=== PATIENT | female | born 1945 | race Caucasian/White ===

== ENCOUNTER → 2019-08-15 14:16 | Outpatient (CLI) | payer MEDICARE, SELFPAY ==
--- NOTE | ~2019-08-15 | DEXA_ITS ---
Bone Density Report Name: Daya Szymanski Age: 73 Sex: Female Ethnicity: White Date of : 1945 Indication: osteopenia; prior fracture; postmenopausal Referring Provider: Hilary Yap Study: Bone densitometry was performed. Exam Date: August 15, 2019 Accession number: [id number] Bone Density: Region BMD T-score Z-score Classification AP Spine (L1-L4) 0.993 -0.5 1.9 Normal Femoral Neck (Left) 0.704 -1.3 0.7 Osteopenia Total Hip (Left) 0.874 -0.6 1.2 Normal Femoral Neck (Right) 0.659 -1.7 0.4 Osteopenia Total Hip (Right) 0.750 -1.6 0.2 Osteopenia Total Hip Mean 0.812 -1.1 0.7 Osteopenia World Health Organization criteria for BMD impression classify patients as: Normal (T-score at or above -1.0), Osteopenia (T-score between -1.0 and -2.5), or Osteoporosis (T-score at or below -2.5). 10-year Fracture Risk(1): Major Osteoporotic Fracture 18% Hip Fracture 3.6% Reported Risk Factors: [place] (), Neck BMD=0.659, BMI=28.4, previous fracture (1) FRAX(R) Version 3.08. Fracture probability calculated for an untreated patient. Fracture probability may be lower if the patient has received treatment. Previous Exams: Region Exam Age BMD T-score BMD Change BMD Change Date g/cm2 vs Baseline vs Previous AP Spine(L1-L4) 08/15/2019 73 0.993 -0.5 -0.017 -0.042* 01/14/2017 71 1.035 -0.1 0.025* 0.046* 02/06/2014 68 0.988 -0.5 -0.021 -0.021 09/04/2011 65 1.009 -0.3 Total Hip(Left) 08/15/2019 73 0.874 -0.6 -0.093* 0.000 01/14/2017 71 0.874 -0.6 -0.093* -0.030* 02/06/2014 68 0.904 -0.3 -0.063* -0.063* 09/04/2011 65 0.967 0.2 Total Hip(Right) 08/15/2019 73 0.750 -1.6 -0.147* -0.046* 01/14/2017 71 0.796 -1.2 -0.100* -0.035* 02/06/2014 68 0.831 -0.9 -0.065* -0.065* 09/04/2011 65 0.896 -0.4 *Denotes significance at 95% confidence level, LSC for AP Spine = 0.022 g/cm2, LSC for Total Hip = 0.027 g/cm2 Clinical Information Provided by Patient: Has had a low trauma fracture Has used the following medications: Vitamin D Patient maximum height was 64.5 Menopause Age: 38 No regular weight bearing exercise Does not regularly consume dairy products Drinks caffeinated beverages Onset of menses at age 14 Number of children 0 Impression:
== END ==
PROVIDERS: Visit Provider Nurse Practitioner
DX: Z78.0 Asymptomatic menopausal state (principal); M85.852 Other specified disorders of bone density and structure, left thigh; M85.851 Other specified disorders of bone density and structure, right thigh
CPT/HCPCS: 77080

== ENCOUNTER 2019-08-24 01:32 | Day surgery (SDC) | payer MEDICARE, SELFPAY ==
[2019-08-23 14:41] VITALS: BMI 28.8
[2019-08-24 07:51] VITALS: BP 129/76; PULSE 95; RESP 18; TEMP 36.3; O2SAT 98
[2019-08-24] MEDS: LACTATED RINGERS 1,000 ML 150 ML IV CONT (08:04)
--- NOTE | 2019-08-24 08:12 | WPDANESEPPF ---
Anes - Initial Pre Proc Eval Procedure: Operation Date: 08/24/19 08:45 Proposed Procedures p Screening Colonoscopy - Jose Loera MD Date/Time: 08/24/19 08:12 Surgeon: Jose Loera MD Pre Op Diagnosis: Neoplasm Screening Patient Data Age: 73 Gender: F Height: 1.63 m Weight: 0 g Last Vital Signs Temp 36.3 C L 08/24/19 07:51 Pulse 95 08/24/19 07:51 Resp 18 08/24/19 07:51 BP 129/76 08/24/19 07:51 Pulse Ox 98 08/24/19 07:51 Allergies Allergy/AdvReac Type Severity Reaction Status Date / Time celecoxib Allergy Unknown Unknown Verified 08/24/19 07:48 doxycycline Allergy Unknown Unknown Verified 08/24/19 07:48 ioversol Allergy Unknown Unknown Verified 08/24/19 07:48 Penicillins Allergy Unknown Unknown Verified 08/24/19 07:48 Sulfa (Sulfonamide Allergy Unknown Unknown Verified 08/24/19 07:48 Antibiotics) sulfanilamide Allergy Unknown Unknown Verified 08/24/19 07:48 Iodinated Contrast Media Allergy Itching Verified 08/24/19 07:48 Home Medications Medication Instructions Recorded Confirmed Type fluoxetine 40 mg capsule 40 mg PO DAILY #90 cap 06/20/19 08/23/19 Rx lisinopril 20 mg tablet 20 mg PO DAILY #90 tablet 06/20/19 08/23/19 Rx aspirin 81 mg tablet,delayed 81 mg PO DAILY 06/21/19 08/23/19 History release cholecalciferol (vitamin D3) 50 2,000 unit PO DAILY 06/21/19 08/23/19 History mcg (2,000 unit) tablet fluticasone propionate 50 1 spray NASAL BID 06/21/19 08/23/19 History mcg/actuation nasal spray,suspension folic acid 1 mg tablet 1 mg PO DAILY 06/21/19 08/23/19 History omeprazole 40 mg capsule,delayed 40 mg PO DAILY 06/21/19 08/23/19 History release ranitidine HCl 75 mg tablet 75 mg PO DAILY 06/21/19 08/23/19 History amlodipine 10 mg tablet 10 mg PO DAILY #90 tablet 07/20/19 08/23/19 Rx metoprolol tartrate 50 mg tablet 50 mg PO DAILY #90 tablet 07/24/19 08/23/19 Rx peg 3350-electrolytes 236 240 ml PO Q10M #4000 ml 08/16/19 Rx gram-22.74 gram-6.74 gram-5.86 gram solution Patient hx anesthesia problems: none Family hx anesthesia problems: none PMFSH Past Medical History Medical History (Updated 07/24/19 @ 09:32 by Hilary Yap NP) Broken ankle left Disc herniation HTN (hypertension) Hyperlipidemia due to dietary fat intake Lactose intolerance Osteoporosis Surgical History Surgical History (Updated 06/21/19 @ 07:25 by Radha Bradford [facility]) H/O oophorectomy H/O rotator cuff surgery Family History Family History (Updated 12/23/17 @ 10:22 by DOCTOR UNKNOWN) Father Family history of heart disease in male family member before age 55 Family history of premature coronary heart disease Mother Family history of heart disease in male family member before age 55 Diabetes mellitus Sibling Family history of coronary artery disease Family history of pancreatic disease Other Family history of allergic disorder Family history of cardiovascular disease Family history of mental disorder Social History Social History (Updated 06/21/19 @ 08:16 by Lynn Crawford [facility]) Smoking status: Former smoker Smoking end date: 06/14/83 Alcohol intake: current Gender identity (if verbalized by the patient): Female Anes - Eval Final PreProcedure Day of Procedure 08/24/19 08:12 Patient weight: normal Heart: regular rate and rhythm Lungs: clear to auscultation and normal air movement Airway: Mallampati scale class II Neurological: alert and oriented Last oral intake: >/= 8 hours ASA classification: II Emergent: no Anesthetic plan: proceed Anesthesia type and monitoring: general GIVS and standard monitoring Informed Consent: The patient's anesthetic plan and its attendant risks and benefits were discussed with the patient/family/POA. Questions were solicited and answers provided to the satisfaction of the patient/family/POA.
--- NOTE | 2019-08-24 08:44 | PM.HPGS ---
History of Present Illness History of Present Illness Consent: Risks, benefits, and alternatives have been discussed and questions answered. Patient agrees to proceed with procedure. Chief complaint: Neoplasm Screening Narrative: Daya Szymanski is a 73 year old female here for abnormal cologuard, she had a colonoscopy but years ago. Review of Systems Constitutional: Constitutional: Denies headache(s) and Denies weakness Eyes: Eyes: Denies blurry vision ENT: Reports Normal hearing present, Denies headache(s) and Denies neck pain Cardiovascular: Cardiovascular: Denies chest pain and Denies dyspnea Respiratory: Respiratory: Denies dyspnea Gastrointestinal: Gastrointestinal: Reports no additional gastrointestinal complaints Genitourinary: Genitourinary: Denies dysuria Musculoskeletal: Musculoskeletal: Denies neck pain Integumentary/Breasts: Skin/Breast: Denies dry skin Neurologic: Reports Normal hearing present, Denies headache(s) and Denies weakness Psychiatric: Psychiatric: Denies anxiety Endocrine: Endocrine: Denies change in body appearance Hematologic/Lymphatic: Hematologic/Lymphatic: Denies easy bleeding Allergic/Immunologic: Allergic/Immunologic: Denies urticaria PMFSH Past Medical History Medical History (Updated 08/24/19 @ 08:44 by Jose Loera MD) Broken ankle left Disc herniation HTN (hypertension) Hyperlipidemia due to dietary fat intake Lactose intolerance Osteoporosis Positive colorectal cancer screening using Cologuard test Surgical History Surgical History (Updated 06/21/19 @ 07:25 by Radha Bradford [facility]) H/O oophorectomy H/O rotator cuff surgery Family History Family History (Updated 12/23/17 @ 10:22 by DOCTOR UNKNOWN) Father Family history of heart disease in male family member before age 55 Family history of premature coronary heart disease Mother Family history of heart disease in male family member before age 55 Diabetes mellitus Sibling Family history of coronary artery disease Family history of pancreatic disease Other Family history of allergic disorder Family history of cardiovascular disease Family history of mental disorder Social History Social History (Updated 06/21/19 @ 08:16 by Lynn Crawford [facility]) Smoking status: Former smoker Smoking end date: 06/14/83 Alcohol intake: current Gender identity (if verbalized by the patient): Female Meds Home Medications and Allergies Home Medications Medication Instructions Recorded Confirmed Type fluoxetine 40 mg capsule 40 mg PO DAILY #90 cap 06/20/19 08/23/19 Rx lisinopril 20 mg tablet 20 mg PO DAILY #90 tablet 06/20/19 08/23/19 Rx aspirin 81 mg tablet,delayed 81 mg PO DAILY 06/21/19 08/23/19 History release cholecalciferol (vitamin D3) 50 2,000 unit PO DAILY 06/21/19 08/23/19 History mcg (2,000 unit) tablet fluticasone propionate 50 1 spray NASAL BID 06/21/19 08/23/19 History mcg/actuation nasal spray,suspension folic acid 1 mg tablet 1 mg PO DAILY 06/21/19 08/23/19 History omeprazole 40 mg capsule,delayed 40 mg PO DAILY 06/21/19 08/23/19 History release ranitidine HCl 75 mg tablet 75 mg PO DAILY 06/21/19 08/23/19 History amlodipine 10 mg tablet 10 mg PO DAILY #90 tablet 07/20/19 08/23/19 Rx metoprolol tartrate 50 mg tablet 50 mg PO DAILY #90 tablet 07/24/19 08/23/19 Rx peg 3350-electrolytes 236 240 ml PO Q10M #4000 ml 08/16/19 Rx gram-22.74 gram-6.74 gram-5.86 gram solution Allergies Allergy/AdvReac Type Severity Reaction Status Date / Time celecoxib Allergy Unknown Unknown Verified 08/24/19 07:48 doxycycline Allergy Unknown Unknown Verified 08/24/19 07:48 ioversol Allergy Unknown Unknown Verified 08/24/19 07:48 Penicillins Allergy Unknown Unknown Verified 08/24/19 07:48 Sulfa (Sulfonamide Allergy Unknown Unknown Verified 08/24/19 07:48 Antibiotics) sulfanilamide Allergy Unknown Unknown Verified 08/24/19 07:48 Iodinated Co
[2019-08-24 09:05] VITALS: BP 103/57; PULSE 64; RESP 16; O2SAT 98
[2019-08-24 09:15] VITALS: BP 118/80; PULSE 65; RESP 16; O2SAT 97
== END 2019-08-24 09:25 | disposition home or self-care (01) ==
PROVIDERS: PCP Internal Medicine; Visit Provider Internal Medicine Gastroenterology
PROC: 0DJD8ZZ Inspection of Lower Intestinal Tract, Via Natural or Artificial Opening Endoscopic (ICD-10-PCS; CPT 45378; principal; 2019-08-24 08:45)
DX: R19.5 Other fecal abnormalities (principal); D12.3 Benign neoplasm of transverse colon; K57.30 Diverticulosis of large intestine without perforation or abscess without bleeding; K64.8 Other hemorrhoids; I10 Essential (primary) hypertension; E78.5 Hyperlipidemia, unspecified; M81.0 Age-related osteoporosis without current pathological fracture; Z79.82 Long term (current) use of aspirin; Z87.891 Personal history of nicotine dependence
CPT/HCPCS: 45385; 88305; J2704; J7120

== ENCOUNTER → 2020-10-10 09:36 | Outpatient (CLI) | payer MEDICARE, SELFPAY ==
[2020-10-10 12:17] LABS: Influenza Control Positive
[2020-10-11 14:59] LABS: SARS-CoV-2 RNA PCR Negative
== END ==
PROVIDERS: PCP Internal Medicine; Visit Provider Nurse Practitioner
DX: R50.9 Fever, unspecified (principal); Z20.822 Contact with and (suspected) exposure to COVID-19
CPT/HCPCS: 87804; C9803; U0003; U0005

== ENCOUNTER → 2022-04-09 14:51 | Outpatient (CLI) | payer MEDICARE, SELFPAY ==
--- NOTE | ~2022-04-09 | DEXA_ITS ---
Bone Density Report Name: KRYSTIN FRANCIS Age: 76 Sex: Female Ethnicity: White Date of : 1945 Indication: osteopenia; prior fracture; postmenopausal Referring Provider: Hilary Yap Study: Bone densitometry was performed. Exam Date: April 09, 2022 Accession number: [id number] Bone Density: Region BMD T-score Z-score Classification AP Spine (L1-L4) 0.987 -0.5 2.0 Normal Femoral Neck (Left) 0.662 -1.7 0.5 Osteopenia Total Hip (Left) 0.839 -0.8 1.1 Normal Femoral Neck (Right) 0.651 -1.8 0.4 Osteopenia Total Hip (Right) 0.721 -1.8 0.1 Osteopenia Total Hip Mean 0.780 -1.3 0.6 Osteopenia World Health Organization criteria for BMD impression classify patients as: Normal (T-score at or above -1.0), Osteopenia (T-score between -1.0 and -2.5), or Osteoporosis (T-score at or below -2.5). 10-year Fracture Risk(1): Major Osteoporotic Fracture 19% Hip Fracture 4.2% Reported Risk Factors: [place] (), Neck BMD=0.651, BMI=28.9, previous fracture (1) FRAX(R) Version 3.08. Fracture probability calculated for an untreated patient. Fracture probability may be lower if the patient has received treatment. Previous Exams: Region Exam Age BMD T-score BMD Change BMD Change Date g/cm2 vs Baseline vs Previous AP Spine(L1-L4) 04/09/2022 76 0.987 -0.5 -0.023 -0.006 08/15/2019 73 0.993 -0.5 -0.017 -0.042* 01/14/2017 71 1.035 -0.1 0.025* 0.046* 02/06/2014 68 0.988 -0.5 -0.021 -0.021 09/04/2011 65 1.009 -0.3 Total Hip(Left) 04/09/2022 76 0.839 -0.8 -0.128* -0.036* 08/15/2019 73 0.874 -0.6 -0.093* 0.000 01/14/2017 71 0.874 -0.6 -0.093* -0.030* 02/06/2014 68 0.904 -0.3 -0.063* -0.063* 09/04/2011 65 0.967 0.2 Total Hip(Right) 04/09/2022 76 0.721 -1.8 -0.176* -0.029* 08/15/2019 73 0.750 -1.6 -0.147* -0.046* 01/14/2017 71 0.796 -1.2 -0.100* -0.035* 02/06/2014 68 0.831 -0.9 -0.065* -0.065* 09/04/2011 65 0.896 -0.4 *Denotes significance at 95% confidence level, LSC for AP Spine = 0.022 g/cm2, LSC for Total Hip = 0.027 g/cm2 Clinical Information Provided by Patient: Has had a low trauma fracture Has used the following medications: Vitamin D Patient maximum height was 64.5 Menopause Age: 38 No regular weight bearing exercise Does not
== END ==
PROVIDERS: PCP Internal Medicine; Visit Provider Nurse Practitioner
DX: Z78.0 Asymptomatic menopausal state (principal); M85.852 Other specified disorders of bone density and structure, left thigh; M85.851 Other specified disorders of bone density and structure, right thigh
CPT/HCPCS: 77080

== ENCOUNTER → 2023-07-29 14:29 | Outpatient (CLI) | payer MEDICARE, SELFPAY ==
--- NOTE | ~2023-07-29 | MM_ITS ---
EXAMINATION: MM screening [facility] BI w julieta HISTORY: Screening mammogram TECHNIQUE: Craniocaudal and mediolateral oblique 3-D tomosynthesis images were obtained and synthetic 2-D images were generated. CAD analysis was submitted and interpreted. COMPARISON: 04/01/2022, 02/27/2021, 03/07/2020 BREAST PARENCHYMAL COMPOSITION:Dense: The breasts are heterogeneously dense, which may obscure small masses. FINDINGS: No suspicious mass, calcification, or architectural distortion are identified in either sandee ast to suggest malignancy. There has been no suspicious interval change. IMPRESSION: No mammographic evidence of malignancy. Recommend routine screening mammography in one year. BI-RADS Category 1: Negative Reviewed, dictated and finalized at location . PLOYMENT SPECIALIST
== END ==
PROVIDERS: PCP Internal Medicine; Visit Provider Physician Assistant Surgical
DX: Z12.31 Encounter for screening mammogram for malignant neoplasm of breast (principal)
CPT/HCPCS: 77063; 77067

== ENCOUNTER 2023-09-10 13:10 | Outpatient (CLI) | payer MEDICARE, SELFPAY ==
--- NOTE | ~2023-09-10 | US_ITS ---
EXAMINATION: US soft tissue head and neck DATE: 09/10/2023 13:36 INDICATION: Localized enlarged lymph nodes. TECHNIQUE: Multiple grayscale and Doppler ultrasound images of the right neck were obtained. COMPARISON: None FINDINGS: There are normal lymph nodes in the right neck in the patient's area of concern. IMPRESSION: 1. No abnormal mass or lymphadenopathy in right neck in the patient's area of concern. Reviewed, dictated and finalized at location A. IMPRESSION: 1. No abnormal mass or lymphadenopathy in right neck in the patient's area of c oncern.
== END 2023-09-10 13:11 ==
LOC: MICIMG 13:11
PROVIDERS: PCP Clinical Nurse Specialist; Visit Provider Clinical Nurse Specialist
DX: R59.0 Localized enlarged lymph nodes (principal)
CPT/HCPCS: 76536

== ENCOUNTER 2024-04-26 08:44 | Outpatient (CLI) | payer MEDICARE, SELFPAY ==
--- NOTE | ~2024-04-26 | MM_ITS ---
EXAMINATION: MM diagnostic [facility] BI w julieta HISTORY: Mastodynia TECHNIQUE: 3-D tomosynthesis images of the breasts were performed and synthetic 2-D images were gener ated. CAD analysis was submitted and interpreted. COMPARISON: 07/29/2023, 04/01/2022, 02/27/2021 BREAST PARENCHYMAL COMPOSITION:Dense: The breasts are heterogeneously dense, which may obscure small masses. FINDINGS: Parenchymal pattern of the breasts is unchanged. No suspicious mass lesion or distortion. N o suspicious microcalcification. IMPRESSION: No mammographic evidence for malignancy. BI-RADS Category 1: Negative Reviewed, dictated and finalized at location . CH PROFESSOR
== END 2024-04-26 08:45 | disposition home or self-care (01) ==
LOC: MICIMG 08:45
PROVIDERS: PCP Internal Medicine; Visit Provider Surgery
DX: N64.4 Mastodynia (principal); R92.333 Mammographic heterogeneous density, bilateral breasts
CPT/HCPCS: 77062; 77066; G0279